=== PATIENT | male | born 1995 | race Caucasian/White ===

== ENCOUNTER 2016-12-10 03:32 | Emergency (ER) | payer SELFPAY ==
--- NOTE | 2016-12-19 13:53 | ER ---
ADMIT: 12/10/2016 RM/LOC: ER [facility] MR#: [id number] [place], [place] [id number] NYDIA BUTLER [address] [place] [id number] Emergency Room Report SEX: M AGE: 21 : 1995 DATE: 12/10/2016 ADDENDUM: A 21-year-old male, who was brought in for medical clearance to go to custodial. The reason he was brought in is because he blew greater than a 250 by Breathalyzer. On examination, The patient reports no complaints. Denies any chest pain or shortness of breath. He has no pain. He denies any medical problems. He does not take any medications. PHYSICAL EXAMINATION: HEART: Regular rate and rhythm. LUNGS: Clear to auscultation. NEUROLOGIC: The patient was alert and oriented, interacted fine and had normal range of motion, and gross motor sensory was intact in all 4 extremities. Discharged in custody of the [employer] in stable condition. DIAGNOSIS: Alcohol intoxication. Octaviano Hatfield MD/ sangeetha JOB #: [id number] CC: Octaviano Hatfield MD, Attending Physician Maurice Shaw MD, Family Physician
== END 2016-12-10 03:50 | disposition home or self-care (01) ==
LOC: ER 03:32
DX: F10.129 Alcohol abuse with intoxication, unspecified (principal)